=== PATIENT | female | born 1950 | race Two or more races ===

== ENCOUNTER 2021-10-15 18:43 | Inpatient (IN) ==
[2021-10-15 20:30] LABS: ABS Lymphocytes 0.5 10^3/ul (1.0-4.8); ABS Monocytes 0.1 10^3/ul (0-0.8); ABS Neutrophils 1.6 10^3/ul (1.5-7.7); Hematocrit 35 % (35-47); Hemoglobin 11.5 g/dL (12.0-16.0); Lymphocyte % 22.7 %; Mean Corpuscular HGB Conc 33 g/dL (31-36); Mean Corpuscular Hemoglobin 29 pg (27-31); Mean Corpuscular Volume 88 fL (80-97); Platelet Count 283 10^3/uL (150-450); Red Blood Count 3.95 10^6 /uL (3.70-4.87); Red Cell Distribution Width 14 % (10-15); White Blood Count 2.1 10^3/uL (3.5-10.8)
[2021-10-15 21:03] LABS: Albumin 3.8 g/dL (3.2-5.2); C Reactive Protein 7.71 mg/L (<8.01); Calcium 9.2 mg/dL (8.6-10.3); Globulin 3.7 g/dL (2-4); Potassium 3.7 mmol/L (3.5-5.0); Total Bilirubin 0.4 mg/dL (0.2-1.0); Total Protein 7.5 g/dL (6.4-8.9); eGFR CKD-EPI 82.7 (>60)
[2021-10-15 21:15] LABS: TSH Ultra Thyroid Stim Horm 0.24 mcIU/mL (0.34-5.60)
[2021-10-15] MEDS ORDERED: Albuterol HFA INHALER 8 gm MDI INH PRN (21:43)
[2021-10-15] MEDS ORDERED: Potassium Chlor 20 meq TAB.ER PO ONE (21:49)
[2021-10-15 22:37] LABS: Magnesium 1.9 mg/dL (1.9-2.7)
[2021-10-15 23:09] LABS: High Sensitivity Troponin 1 Hr 1152 pg/mL (<15)
[2021-10-15] MEDS: Heparin DRIP 25,000 UNITS BAG 25,000 UNITS/500 ML BAG IV SCH (23:26)
[2021-10-16 00:57] LABS: High Sensitivity Troponin 3 Hr 1233 pg/mL (<15)
[2021-10-16 05:39] LABS: Activated Partial Thrombo Time 42.2 seconds (26.0-38.0)
[2021-10-16] MEDS: Heparin 5000 UNITS/ML 1 mL VIAL IV SCH ×2 (05:57→19:00)
[2021-10-16] MEDS: Heparin DRIP 25,000 UNITS BAG 25,000 UNITS/500 ML BAG IV SCH ×2 (05:57→18:58)
[2021-10-16 06:05] LABS: HDL Cholesterol 42.1 mg/dL
[2021-10-16 06:49] LABS: Urine Appearance Cloudy; Urine Bilirubin Negative (Negative); Urine Blood Negative (Negative); Urine Color Yellow; Urine Glucose Negative (Negative); Urine Ketones Negative (Negative); Urine Nitrite Negative (Negative); Urine Protein Negative (Negative); Urine Specific Gravity 1.026 (1.002-1.030); Urine Urobilinogen Negative (Negative)
[2021-10-16 07:39] LABS: Calcium 8.9 mg/dL (8.6-10.3); Magnesium 2.1 mg/dL (1.9-2.7); eGFR CKD-EPI 91.3 (>60)
[2021-10-16] MEDS ORDERED: NS 0.9% 1000 ml BAG 1,000 ML IV SCH ×2 (07:45→10:45)
[2021-10-16 07:55] LABS: Urine Bacteria 1+ (Absent); Urine Red Blood Cell Trace(0-2/hpf) (Absent); Urine Squamous Epithelial Cell Present (Absent); Urine White Blood Cell Trace(0-5/hpf) (Absent)
[2021-10-16 08:13] LABS: Ferritin 184.2 ng/mL (11-307)
[2021-10-16 08:14] LABS: ABS Monocytes 0.9 10^3/ul (0-0.8); ABS Neutrophils 2.8 10^3/ul (1.5-7.7); Hematocrit 35 % (35-47); Hemoglobin 11.7 g/dL (12.0-16.0); Lymphocyte % 21.5 %; Mean Corpuscular HGB Conc 33 g/dL (31-36); Mean Corpuscular Hemoglobin 29 pg (27-31); Mean Corpuscular Volume 87 fL (80-97); Mean Platelet Volume 7.9 fL (7.4-10.4); Platelet Count 272 10^3/uL (150-450); Red Blood Count 4.01 10^6 /uL (3.70-4.87); Red Cell Distribution Width 14 % (10-15); White Blood Count 4.8 10^3/uL (3.5-10.8)
[2021-10-16] MEDS: CMCS: FLUTICAS/UMECLI/VILANT 200-62.5-25 MDI (NF) INH SCH (08:37)
[2021-10-16] MEDS ORDERED: Nicotine GUM 4MG FRUIT FLAVOR PO PRN (09:55)
[2021-10-16 11:08] LABS: INR 1.03 (0.86-1.15)
[2021-10-16] MEDS: Nicotine PATCH 21 MG/24 HR PATCH TRANSDERM SCH (11:42)
[2021-10-16] MEDS ORDERED: Midazolam 5 mg/5 ml VIAL 1 mg/ml 5 ml VIAL (5 mg) ONE (12:14)
[2021-10-16] MEDS ORDERED: VERAPAMIL 2.5 MG/ML 2 ML VIAL ** 5 mg/2 ml ONE (12:14)
[2021-10-16] MEDS ORDERED: Heparin 1,000 UNIT/ML 10 ml (10,000 UNITS) CATHLAB/DIALYSIS ONE (12:14)
[2021-10-16] MEDS ORDERED: fentaNYL 100 mcg/2 ml 50 MCG/ML VIAL ONE (12:14)
[2021-10-16] MEDS ORDERED: Heparin 2 UNITS/ML 1000 mls 2,000 ML IV ONE (12:15)
[2021-10-16] MEDS ORDERED: Lidocaine 1% MPF 5 ML VIAL ONE (12:15)
[2021-10-16] MEDS ORDERED: niCARdipine 0.1MG/ML IVPREMIX 0 MG/0 ML BAG IV ONE (12:15)
[2021-10-16] MEDS ORDERED: Iohexol 350 (CONTRAST) 200 ML MDV IV ONE (12:15)
[2021-10-16] MEDS ORDERED: nitroGLYCERIN DRIP 0 MCG/0 ML BTL ONE (12:15)
[2021-10-17 05:43] LABS: Potassium 3.8 mmol/L (3.5-5.0); eGFR CKD-EPI 92.2 (>60)
[2021-10-17] MEDS ORDERED: NS 0.9% 1000 ml BAG 1,000 ML IV SCH (07:00)
[2021-10-17] MEDS: Nicotine PATCH 21 MG/24 HR PATCH TRANSDERM SCH (07:39)
[2021-10-17] MEDS ORDERED: Heparin 1,000 UNIT/ML 10 ml (10,000 UNITS) CATHLAB/DIALYSIS ONE (07:57)
[2021-10-17] MEDS ORDERED: Midazolam 5 mg/5 ml VIAL 1 mg/ml 5 ml VIAL (5 mg) ONE (07:57)
[2021-10-17] MEDS ORDERED: fentaNYL 100 mcg/2 ml 50 MCG/ML VIAL ONE ×2 (07:57→10:09)
[2021-10-17] MEDS ORDERED: Lidocaine 1% MPF 5 ML VIAL ONE ×2 (07:58→08:50)
[2021-10-17] MEDS ORDERED: Heparin 2 UNITS/ML 1000 mls 2,000 ML IV ONE (07:58)
[2021-10-17] MEDS ORDERED: nitroGLYCERIN DRIP 25,000 MCG/250 ML BTL ONE (07:58)
[2021-10-17] MEDS ORDERED: niCARdipine 0.1MG/ML IVPREMIX 20 MG/200 ML BAG IV ONE (07:59)
[2021-10-17] MEDS ORDERED: Iohexol 350 (CONTRAST) 50 ML SDV IV ONE ×2 (09:00→10:00)
[2021-10-17] MEDS: CMCS: FLUTICAS/UMECLI/VILANT 200-62.5-25 MDI (NF) INH SCH (10:03)
[2021-10-17] MEDS ORDERED: Enoxaparin 40 MG/0.4 ML SYR SUBCUT SCH (21:00)
[2021-10-18 06:12] LABS: ABS Lymphocytes 2.5 10^3/ul (1.0-4.8); ABS Monocytes 0.9 10^3/ul (0-0.8); ABS Neutrophils 4.5 10^3/ul (1.5-7.7); Hematocrit 34 % (35-47); Hemoglobin 11.4 g/dL (12.0-16.0); Lymphocyte % 31.5 %; Mean Corpuscular HGB Conc 34 g/dL (31-36); Mean Corpuscular Hemoglobin 30 pg (27-31); Mean Corpuscular Volume 87 fL (80-97); Mean Platelet Volume 9.1 fL (7.4-10.4); Platelet Count 266 10^3/uL (150-450); Red Blood Count 3.88 10^6 /uL (3.70-4.87); Red Cell Distribution Width 14 % (10-15)
[2021-10-18 06:29] LABS: Calcium 9.2 mg/dL (8.6-10.3); Potassium 3.7 mmol/L (3.5-5.0); eGFR CKD-EPI 85.4 (>60)
[2021-10-18] MEDS: CMCS: FLUTICAS/UMECLI/VILANT 200-62.5-25 MDI (NF) INH SCH (07:51)
[2021-10-18 11:40] VITALS: BP 104/55
== END 2021-10-18 15:37 | disposition home or self-care (01) | DRG 287 ==
LOC: MEDTELE
PROVIDERS: ADMIT Hospitalist; ATTEND Internal Medicine

== ENCOUNTER 2022-11-11 17:23 | Observation (INO) ==
[2022-11-11] MEDS ORDERED: Al Hydrox/Mg Hydrox/Simet LIQ 30 ML UDC PO PRN (17:40)
[2022-11-11] MEDS ORDERED: Albuterol/Ipratropium NEB.SOL (2.5/0.5 MG) 3 ML NEB.SOLN INH PRN (18:32)
[2022-11-11] MEDS: Albuterol/Ipratropium NEB.SOL (2.5/0.5 MG) 3 ML NEB.SOLN INH SCH (18:47)
[2022-11-11 19:40] LABS: High Sens Troponin Baseline 482 pg/mL (<15)
[2022-11-11 19:50] LABS: ALT 47 U/L (7-52); AST 46 U/L (13-39); Albumin 3.6 g/dL (3.2-5.2); Albumin/Globulin Ratio 1.1 (1-3); Alkaline Phosphatase 76 U/L (35-149); Anion Gap 10 mmol/L (2-16); Blood Urea Nitrogen 17 mg/dL (6-24); CO2 Carbon Dioxide 25 mmol/L (22-32); Calcium 8.8 mg/dL (8.6-10.3); Chloride 103 mmol/L (101-111); Creatinine, Serum 0.77 mg/dL (0.51-0.95); Globulin 3.2 g/dL (2-4); Glucose 165 mg/dL (70-100); Potassium 3.5 mmol/L (3.5-5.0); Sodium 138 mmol/L (135-145); Total Protein 6.8 g/dL (6.4-8.9); eGFR CKD-EPI 80.9 (>60)
[2022-11-11 20:34] LABS: High Sensitivity Troponin 1 Hr 434 pg/mL (<15)
[2022-11-11] MEDS ORDERED: Enoxaparin 40 MG/0.4 ML SYR SUBCUT SCH (21:00)
[2022-11-11 21:18] LABS: High Sensitivity Troponin 3 Hr 414 pg/mL (<15)
[2022-11-12 04:28] LABS: ABS Lymphocytes 0.7 10^3/uL (1.0-4.8); ABS Monocytes 0.2 10^3/uL (0.0-0.9); ABS Neutrophils 5.6 10^3/uL (1.5-7.6); ABS Nucleated RBC 0.01 10^3/ul; Hematocrit 37.6 % (35-45); Hemoglobin 12.9 g/dL (11.5-14.3); Mean Corpuscular Hemoglobin 30.6 pg (27-33); Mean Corpuscular Hgb Conc 34.4 g/dL (31-36); Mean Corpuscular Volume 88.8 fL (80-97); Mean Platelet Volume 8.8 fL (7.5-11.2); Nucleated Red Blood Cells % 0.1 /100 WBC (0.0-0.4); Platelet Count 202 10^3/uL (150-450); Red Blood Count 4.23 10^6/uL (3.63-4.92); Red Cell Distribution Width 13.2 % (12-17); White Blood Count 6.6 10^3/uL (3.8-11.8)
[2022-11-12 04:45] LABS: ALT 37 U/L (7-52); AST 30 U/L (13-39); Albumin 3.3 g/dL (3.2-5.2); Albumin/Globulin Ratio 1.1 (1-3); Alkaline Phosphatase 69 U/L (35-149); Cholesterol 134 mg/dL; Globulin 2.9 g/dL (2-4); HDL Cholesterol 43.8 mg/dL; LDL Cholesterol 75 mg/dL; Total Protein 6.2 g/dL (6.4-8.9); Triglycerides 76 mg/dL
[2022-11-12] MEDS: Albuterol/Ipratropium NEB.SOL (2.5/0.5 MG) 3 ML NEB.SOLN INH SCH (07:33)
[2022-11-12] MEDS ORDERED: Nicotine GUM 4MG FRUIT FLAVOR PO PRN (08:42)
[2022-11-12] MEDS ORDERED: Potassium Chlor 20 meq TAB.ER PO SCH (09:00)
[2022-11-12] MEDS ORDERED: Nicotine PATCH 21 MG/24 HR PATCH TRANSDERM SCH (09:00)
[2022-11-12] MEDS ORDERED: CMCS: FLUTICAS/UMECLI/VILANT 200-62.5-25 MDI (NF) INH SCH (09:00)
[2022-11-12 17:09] VITALS: BP 128/74
== END 2022-11-12 17:09 | disposition home or self-care (01) ==
LOC: ED 17:23 → EDHOLD 17:23
PROVIDERS: ADMIT Internal Medicine; ATTEND Internal Medicine